=== PATIENT | female | born 1970 | race Caucasian/White ===

== ENCOUNTER 2016-10-09 09:17 | Day surgery (SDC) | payer OTHER ==
[2016-10-09] VITALS (7 sets, daily range): BP systolic 86–133; BP diastolic 47–69; PULSE 60–82; RESP 16–31; Ht 157.5 cm; Wt 73.0 kg
[~2016-10-09] VITALS: Ht 157.5 cm; Wt 73.0 kg
[~2016-10-09 09:17] MED LIST: LACTATED RINGER'S 1,000 ML IV SCH
[2016-10-09] MEDS ORDERED: ASPI-664 PO (09:54)
[2016-10-09] MEDS ORDERED: METF500T4 PO (09:54)
[2016-10-09] MEDS ORDERED: LOVA20TA PO (09:54)
[2016-10-09 10:35] LABS: ADD SCAN DIFF NO
[2016-10-09 10:54] LABS: BASOPHILS % 0.4 % (0.0-2.0); EOSINOPHILS # 0.1 10^3/ul (0.0-0.5); EOSINOPHILS % 1.3 % (0.0-7.0); HEMATOCRIT 40.3 % (37.0-47.0); HEMOGLOBIN 12.9 g/dl (12.0-16.0); LYMPHOCYTES # 2.3 10^3/ul (0.8-2.9); LYMPHOCYTES % 42.8 % (15.0-51.0); MEAN CORPUSCULAR HEMOGLOBIN 27.4 pg (29.0-33.0); MEAN CORPUSCULAR VOLUME 85.6 fl (82.0-101.0); MONOCYTE # 0.4 10^3/ul (0.3-0.9); NEUTROPHIL # 2.6 10^3/ul (1.6-7.5); NEUTROPHILS % 48.3 % (39.0-77.0); PLATELET COUNT 246 10^3/UL (140-415); RED BLOOD COUNT 4.71 10^6/ul (4.20-5.40); RED CELL DISTRIBUTION WIDTH 14.4 % (11.5-14.5); WHITE BLOOD COUNT 5.3 10^3/ul (4.8-10.8)
[2016-10-09] MEDS ORDERED: LIDOCAINE 2%/EPI 30 ML INJ ONE (12:04)
[2016-10-09] MEDS ORDERED: MIDAZOLAM 1 MG/ML 2 ML INJ ONE (12:19)
[2016-10-09] MEDS ORDERED: LIDOCAINE 2% (SDV) 5 ML INJ ONE (12:19)
[2016-10-09] MEDS ORDERED: PROPOFOL 20 ML ONE (12:19)
[2016-10-09] MEDS ORDERED: FENTAnyl 50 MCG/ML VIAL ONE (12:28)
[2016-10-09] MEDS ORDERED: METOCLOPRAMIDE 10 MG INJ ONE (12:37)
[2016-10-09] MEDS ORDERED: DEXAMETHASONE 4 MG/ML 1 ML INJ ONE (12:37)
[2016-10-09] MEDS ORDERED: ONDANSETRON 4 MG INJ ONE (12:37)
[2016-10-09] MEDS ORDERED: FERRIC SUBSULFATE 8 GM VIAL TOP ONE (12:54)
--- NOTE | 2016-10-09 13:28 | HP ---
Date/Time of Note Date/Time of Note DATE: 10/09/16 TIME: 13:25 Assessment/Plan VTE Prophylaxis VTE Prophylaxis Intervention: ambulation Lines/Catheters IV Catheter Type (from Nrs): Saline Lock Assessment/Plan Assessment/Plan A: Moderate cervical dysplasia P: Loop Electrosurgical Excision Procedure HPI/ROS Admit Date/Time Admit Date/Time Hx of Present Illness Moderate cervical dysplasia ROS Constitutional: improved, no complaints Eyes: no complaints ENT: no complaints Respiratory: no complaints Cardiovascular: no complaints Gastrointestinal: no complaints Genitourinary: no complaints Musculoskeletal: no complaints Skin: no complaints Neurologic: no complaints Endocrine: no complaints Lymphatic: no complaints Psychological: nl mood/affect, no complaints Immunologic: no complaints PMH/Family/Social Past Medical History Medical History: diabetes Past Surgical History Past Surgical Hx: cholecystectomy, other (bilateral tubal ligation) Family History Significant Family History: diabetes Social History Smoking Status: Never smoker Exam/Review of Systems Vital Signs Vitals Vital Signs Date Time Temp Pulse Resp B/P Pulse Ox O2 Delivery O2 Flow Rate FiO2 10/09/16 13:13 98.0 10/09/16 11:00 78 16 111/65 98 Room Air Exam Constitutional: alert, oriented, well developed Psych: nl mood/affect, no complaints Head: atraumatic, normocephalic Eyes: EOMI, PERRL, nl conjunctiva, nl lids, nl sclera ENMT: nl external ears & nose, nl lips & teeth, nl nasal mucosa & septum Neck: non-tender, supple Respiratory: clear to auscultation, normal air movement Cardiovascular: nl pulses, regular rate and rhythm Gastrointestinal: nl liver, spleen, non-tender, soft Musculoskeletal: nl extremities to inspection Extremities: normal pulses Neurological: CURRICULUM DIRECTOR II-XII intact, nl mental status, nl speech, nl strength Skin: nl turgor, No rash or lesions Lymph: nl lymph nodes Labs Result Diagram: 10/09/16 1022 Medications Medications Current Medications Lactated Ringer's (Lr) 1,000 ml @ 125 mls/hr Q8H IV ; Start 10/09/16 at 09:00 FAUZIA RAMIREZ MD Oct 09, 2016 13:28
[2016-10-09] MEDS ORDERED: PROCHLORPERAZINE 10 MG INJ IV PRN (13:30)
[2016-10-09] MEDS ORDERED: HYDROmorphONE (0.2 MG/ML) 10ML SYG IV PRN (13:30)
[2016-10-09] MEDS ORDERED: ONDANSETRON 4 MG INJ IV PRN (13:30)
[2016-10-09] MEDS ORDERED: DIPHENHYDRAMINE 50 MG INJ IV PRN (13:30)
[2016-10-09] MEDS ORDERED: FENTAnyl 50 MCG/ML VIAL IV PRN (13:30)
[2016-10-09] MEDS ORDERED: OXYCODONE/ACETAMINOPHEN (5/325) TAB PO PRN (13:30)
[2016-10-09] MEDS ORDERED: MEPERIDINE 25 MG INJ IV PRN (13:30)
[2016-10-09] MEDS ORDERED: EPHEDrine SULFATE 50 MG/5 ML SYG ONE (13:38)
--- NOTE | 2016-10-09 14:12 | OPR ---
Date/Time of Note Date/Time of Note DATE: 10/09/16 TIME: 14:10 Operative Report Preoperative Diagnosis Moderate cervical dysplasia Postoperative Diagnosis Same Operation/Procedure Performed Loop Electrosugical Excision Procedure Surgeon: FAUZIA RAMIREZ MD Anesthesia: general Estimated Blood Loss: 0 - 10 ml's Specimens Ectocervix, endocervix and ECC. Complications: None FAUZIA RAMIREZ MD Oct 09, 2016 14:12
--- NOTE | 2016-10-10 10:31 | RADRPT ---
Vent Rate: 69 bpm RR Interval: 0 msec [place] Interval: 136 msec QRS Duration: 80 msec QT Interval: 418 msec QTC Interval: 447 msec P-R-T [place]: 42 - 23 - 27 degrees Normal sinus rhythm Low voltage QRS Borderline ECG Electronically Signed By: Rajan Cheng [id number]
--- NOTE | 2016-11-19 10:33 | OPR ---
DATE OF OPERATION: 10/09/2016 PREOPERATIVE DIAGNOSIS: Moderate cervical dysplasia. POSTOPERATIVE DIAGNOSIS: Moderate cervical dysplasia. OPERATION: Loop electrosurgical excision procedure. ANESTHESIA: General. SURGEON: Konrad Villa MD OPERATIVE PROCEDURE: The patient was taken to the operating room and placed on the operating table in the supine position. After adequate general anesthesia was given, the patient was placed in dorsal lithotomy position. The area was prepared and draped in the usual sterile fashion. A speculum was placed inside the vagina. Using a solution of lidocaine with epinephrine, the cervix was injected. Using a semicircular loop, a portion of the ectocervix was excised and sent to Pathology. Using a square loop, a portion of the endocervix was excised and sent to Pathology. Using Kevorkian curette, endocervical curettage was performed and specimen obtained was sent to Pathology. Using a ball-tip Bovie, the small bleeders were cauterized. Surgicel soaked in Monsel solution was applied to the site. Adequate hemostasis was assured. All the instruments were removed. The patient tolerated the tolerated the procedure well. The patient was awakened from anesthesia and transferred to recovery in stable condition. Estimated blood loss minimal. All counts were correct. Dictated By: Konrad Villa MD /ngoc/ross /Document#: [id number]
== END 2016-10-09 14:50 | disposition home or self-care (01) ==
LOC: SDS 09:17
PROVIDERS: ATTEND Obstetrics & Gynecology
DX: N87.9 Dysplasia of cervix uteri, unspecified (principal)
CPT/HCPCS: 57505; 57522; 82962; 84703; 85025; 86850; 86900; 86901; 88305; 93005; J1100; J2250; J2405; J2765; J3010; Z7512; Z7610

== ENCOUNTER 2018-01-21 08:09 | Day surgery (SDC) | END 2018-01-21 13:45 | disposition home or self-care (01) ==